=== PATIENT | male | born 1995 | race Caucasian/White ===

== ENCOUNTER 2019-04-12 18:21 | Emergency (ER) | payer SELFPAY ==
[~2019-04-12] VITALS: Ht 165.1 cm; Wt 64.0 kg
[2019-04-12] MEDS ORDERED: BACITRACIN ZINC OINT UDPKT TOP ONE (18:45)
[2019-04-12 19:25] LABS: BASOPHILS % 0.5 % (0.0-2.0); EOSINOPHILS % 0.9 % (0.0-5.0); HEMATOCRIT. 43.1 % (42.0-52.0); HEMOGLOBIN. 15.1 g/dL (14.0-18.0); LYMPHOCYTES % 10.9 % (20.0-50.0); MEAN CORPUSCULAR HEMOGLOBIN 31.5 pg (28.0-32.0); MONOCYTES % 5.2 % (2.0-8.0); NEUTROPHILS % 82.5 % (40.0-76.0); PLATELET 305 x1000/uL (130-400); RED BLOOD CELL COUNT 4.79 mill/uL (4.7-6.1); RED CELL DISTRIBUTION WIDTH 13.7 % (11.6-14.6)
[2019-04-12 19:28] LABS: CHLORIDE 105 mEq/L (98-107)
[2019-04-12 19:35] LABS: ETHANOL BLOOD < 10 mg/dL
[2019-04-12] MEDS ORDERED: HALOPERIDOL LACTATE 5MG/ML VIAL IM ONE (21:15)
[2019-04-12] MEDS ORDERED: DIPHENHYDRAMINE 50MG/ML VIAL IM ONE (21:45)
[2019-04-12 23:26] LABS: CLARITY URINE CLEAR (CLEAR); COLOR URINE YELLOW (YELLOW); KETONES URINE 1+ (NEGATIVE); LEUKOCYTE ESTERASE URINE NEGATIVE (NEGATIVE); NITRITE URINE NEGATIVE (NEGATIVE); OCCULT BLOOD URINE NEGATIVE (NEGATIVE); PH URINE 5.5 (4.5-8.0); PROTEIN URINE TRACE (NEGATIVE); SPECIFIC GRAVITY URINE 1.025 (1.005-1.030)
[2019-04-12 23:38] LABS: *COCAINE SCREEN URINE NEGATIVE (NEGATIVE)
[2019-04-12 23:39] LABS: *AMPHETAMINES SCREEN URINE PRESUMTIVE POSITIVE (NEGATIVE); *BARBITURATES SCREEN URINE NEGATIVE (NEGATIVE); CANNABINOID URINE SCREEN PRESUMTIVE POSITIVE (NEGATIVE); METHADONE URINE SCREEN NEGATIVE (NEGATIVE); OPIATES URINE SCREEN NEGATIVE (NEGATIVE); PHENCYCLIDINE URINE SCREEN NEGATIVE (NEGATIVE)
[2019-04-12 23:40] LABS: *BENZODIAZEPINES SCREEN URINE NEGATIVE (NEGATIVE)
[2019-04-13] MEDS ORDERED: HALOPERIDOL LACTATE 5MG/ML VIAL IM ONE (01:30)
[2019-04-13 11:30] VITALS: BP 96/62
== END 2019-04-13 12:00 | disposition home or self-care (01) ==
LOC: ER 20:01
DX: T43.641A Poisoning by ecstasy, accidental (unintentional), initial encounter (principal); T43.621A Poisoning by amphetamines, accidental (unintentional), initial encounter; F23 Brief psychotic disorder; F15.129 Other stimulant abuse with intoxication, unspecified; R45.1 Restlessness and agitation; R45.851 Suicidal ideations; Y92.89 Other specified places as the place of occurrence of the external cause
CPT/HCPCS: 36415; 80053; 80305; 80320; 81003; 85025; 96372; 99284; J1200; J1630; Z7610; G0480